=== PATIENT | male | born 1965 | race Caucasian/White ===

== ENCOUNTER 2017-06-05 17:29 | Emergency (ER) | payer OTHER ==
[2017-06-05 17:36] VITALS: TEMP 97.8; BMI 39.1
[2017-06-05 19:44] VITALS: BP 143/64; PULSE 87
--- NOTE | 2017-06-05 20:19 | PDOC ---
History of Present Illness <Marium Moncada - Last Filed: 06/05/17 23:38> - General History Source: Patient Exam Limitations: No Limitations - History of Present Illness Initial Comments: 06/05/17 20:46 The patient is a 51 year old male, with a significant past medical history of hypertension and coronary artery disease s/p valve replacements x 3, who presents to the emergency department for evaluation. The patient reports that he is followed by Dr. Saenz and that he had an echo and EKGs done in office approximately a month and a half ago. He reports that the results of his echo were normal but that his EKG demonstrated ventricular bigeminy. He reports that he was then monitored for 24 hours via a Holter monitor which did not reveal any abnormalities. The patient also reports that the was recently on vacation in [facility] where he experienced lower extremity edema which has since resolved. However, given his cardiac history his enterprise resource analyst advised him to visit the ED to rule out any potential blood clots which could have caused the lower extremity edema. Currently in the ED, the patient denies chest pain, shortness of breath or lower extremity edema. Allergies: None reported. Past Surgical History: Valve Replacement x 3. Social History: Non-smoker. Denies alcohol or drug use. PCP: Dr. Wheat Lacquer Polisher: Dr. Saenz <Jacqueline James - Last Filed: 06/05/17 23:47> - General Chief Complaint: Edema Stated Complaint: PCP SENT/EVALUATION/R/O PE Time Seen by Provider: 06/05/17 18:54 Past History - Past Medical History Cancer: Yes (heart valve) Other medical history: Obesity - Surgical History Cardiac Surgery: Yes (valve replacement x3) - Psycho/Social/Smoking Cessation Hx Suicidal Ideation: No Smoking History: Never smoked Information on smoking cessation initiated: No Hx Alcohol Use: No Drug/Substance Use Hx: No Substance Use Type: None <Marium Moncada - Last Filed: 06/05/17 23:38> <Jacqueline James - Last Filed: 06/05/17 23:47> - Past Medical History Allergies/Adverse Reactions: Allergies Allergy/AdvReac Type Severity Reaction Status Date / Time No Known Allergies Allergy Verified 06/05/17 17:36 Home Medications: Ambulatory Orders Alfuzosin HCl [Uroxatral] 10 mg PO BID 06/05/17 Amlodipine Besylate 5 mg PO DAILY 06/05/17 Aspirin [ASA -] 81 mg PO DAILY 06/05/17 Review of Systems - Review of Systems Able to Perform ROS?: Yes Comments:: 06/05/17 20:21 GENERAL/CONSTITUTIONAL: No fever or chills. No weakness. HEAD, EYES, EARS, NOSE AND THROAT: No change in vision. No ear pain or discharge. No sore throat. CARDIOVASCULAR: No chest pain or shortness of breath. RESPIRATORY: No cough, wheezing, or hemoptysis. GASTROINTESTINAL: No nausea, vomiting, diarrhea or constipation. GENITOURINARY: No dysuria, frequency, or change in urination. MUSCULOSKELETAL: No joint or muscle swelling or pain. No neck or back pain. SKIN: No rash. NEUROLOGIC: No headache, vertigo, loss of consciousness, or change in strength/ sensation. ENDOCRINE: No increased thirst. No abnormal weight change. HEMATOLOGIC/LYMPHATIC: No anemia, easy bleeding, or history of blood clots. ALLERGIC/IMMUNOLOGIC: No hives or skin allergy. <Jacqueline James - Last Filed: 06/05/17 23:47> *Physical Exam - Vital Signs Last Vital Signs Temp Pulse Resp BP Pulse Ox 97.8 F 87 18 143/64 100 06/05/17 17:33 06/05/17 19:43 06/05/17 19:43 06/05/17 19:43 06/05/17 19:43 <Marium Moncada - Last Filed: 06/05/17 23:38> - Vital Signs Last Vital Signs Temp Pulse Resp BP Pulse Ox 97.8 F 87 18 143/64 100 06/05/17 17:33 06/05/17 19:43 06/05/17 19:43 06/05/17 19:43 06/05/17 19:43 - Physical Exam Comments: 06/05/17 20:25 GENERAL: Awake, alert, and fully oriented, in no acute distress. HEAD: No signs of trauma. EYES: PERRLA, EOMI, sclera anicteric, conjunctiva clear. ENT: Auricles normal inspection, hearing grossly normal, nares patent, oropharynx clear without exudates. Moist mucosa. NECK: Normal ROM, supple, no lymphadenopathy, JVD, or masses. LUNGS: Breath sounds equal, clear to auscultation bilaterally. No wheezes and no crackles. HEART: Regular rate and rhythm, normal S1 and S2, no murmurs, rubs or gallops. ABDOMEN: Obese abdomen. Soft, nontender, normoactive bowel sounds. No guarding, no rebound. No masses. EXTREMITIES: Normal range of motion, no edema. No clubbing or cyanosis. No cords , erythema or tenderness. No deformity. NEUROLOGICAL: AAO x 3. Normal mood and affect. Cranial nerves II through XII intact. Normal speech, normal gait. SKIN: Warm, dry, normal turgor, no rashes or lesions noted. <Jacqueline James - Last Filed: 06/05/17 23:47> ED Treatment Course - LABORATORY CBC & Chemistry Diagram: 06/05/17 21:00 06/05/17 21:00 <Marium Moncada - Last Filed: 06/05/17 23:38> - LABORATORY CBC & Chemistry Diagram: 06/05/17 21:00 06/05/17 21:00 <Jacqueline James - Last Filed: 06/05/17 23:47> Medical Decision Making - Medical Decision Making 06/05/17 23:38 Pt presents to the ED after sent in from cardiologists office for CT PE. PAtient denies complaints of chest pain or shortness of breath, but had an episode of edema that resolved spontaneously. CT PE is negative. Will discharge home with cardiology follow up. <Marium Moncada - Last Filed: 06/05/17 23:38> - Medical Decision Making 06/05/17 23:47 EXAM: CT/CHEST CTA Reviewed By: Dr. Rocael Fields IMPRESSION: No CT evidence of pulmonary embolism. Status post median sternotomy with aortic valve replacement. Multiple slightly prominent mediastinal lymph nodes are noted which are probably hyperplastic in nature. Comparison with previous CT studies is suggested if available from a different facility. Alternatively correlate with 3 month follow-up CT to document stability/ resolution. Diffuse hepatic steatosis. <Jacqueline James - Last Filed: 06/05/17 23:47> *DC/Admit/Observation/Transfer <Marium Moncada - Last Filed: 06/05/17 23:38> - Attestations Scribe Attestion: 06/05/17 20:22 Documentation prepared by Jacqueline James, acting as medical equipment sales for Marium Moncada MD. <Jacqueline James - Last Filed: 06/05/17 23:47> Diagnosis at time of Disposition: Edema Qualifiers: Edema type: unspecified Qualified Code(s): R60.9 - Edema, unspecified - Discharge Dispostion Disposition: HOME Condition at time of disposition: Good - Referrals Referrals: Louise Wheat MD [Primary Care Provider] - - Patient Instructions Printed Discharge Instructions: DI for Atypical Chest Pain Additional Instructions: return to the ED for chest pain, shortness of breath, palpitations, passing out.
[2017-06-05 21:14] LABS: BASOPHIL 0.6 % (0-2.0); EOSINOPHIL 1.8 % (0-4.5); MCH 28.1 pg (25.7-33.7); MCHC 33.5 g/dl (32.0-35.9); MEAN PLT VOLUME 8.8 fl (7.5-11.1); NEUTROPHILS 58.1 % (42.8-82.8); PLATELET COUNT 243 K/MM3 (134-434); RDW 14.4 % (11.9-15.9)
[2017-06-05 21:42] LABS: ALBUMIN 3.8 g/dl (3.4-5.0); ALK PHOS 59 U/L (45-117); ANION GAP 6 (8-16); BILIRUBIN,TOTAL 0.6 mg/dL (0.2-1.0); CO2 28 mmol/L (21-32); CREATININE 1.3 mg/dL (0.7-1.3); GLUCOSE,RANDOM 82 mg/dL (74-106); SGOT/AST 28 U/L (15-37); SGPT/ALT 36 U/L (12-78); TOT PROT 7.8 g/dl (6.4-8.2)
--- NOTE | 2017-06-11 14:49 | EKG ---
Test Reason : Blood Pressure : / mmHG Vent. Rate : 079 BPM Atrial Rate : 079 BPM P-R Int : 172 ms QRS Dur : 088 ms QT Int : 368 ms P-R-T Axes : 070 023 115 degrees QTc Int : 421 ms SINUS RHYTHM WITH OCCASIONAL PREMATURE VENTRICULAR COMPLEXES POSSIBLE LEFT ATRIAL ENLARGEMENT INFERIOR INFARCT , AGE UNDETERMINED CANNOT RULE OUT ANTERIOR INFARCT , AGE UNDETERMINED T WAVE ABNORMALITY, CONSIDER LATERAL ISCHEMIA ABNORMAL ECG NO PREVIOUS ECGS AVAILABLE Confirmed by JACOB NANCE MD ([id number]) on 06/11/2017 2:49:07 PM Referred By: Confirmed By:JACOB NANCE MD
== END 2017-06-05 23:54 | disposition home or self-care (01) ==
LOC: JER 17:29
DX: R60.9 Edema, unspecified (principal); I10 Essential (primary) hypertension; I25.10 Atherosclerotic heart disease of native coronary artery without angina pectoris
CPT/HCPCS: 36415; 71275-TC; 80053; 85025; 85379; 93005; 93010; 99282-25